=== PATIENT | male | born 1950 | race Caucasian/White ===

== ENCOUNTER 2016-12-31 21:32 | Emergency (ER) | payer MEDICARE, BC ==
[~2016-12-31 21:32] MED LIST: ASPIRIN81 MG PO; IBUPROFEN200 M1 PO; OMEGA 3 FISH1 CAP.EC PO; PERCOCET 5/3251 TAB PO
== END 2016-12-31 22:20 ==
LOC: EDMED 21:32
DX: S80.861A Insect bite (nonvenomous), right lower leg, initial encounter (principal); Z88.0 Allergy status to penicillin; W57.XXXA Bitten or stung by nonvenomous insect and other nonvenomous arthropods, initial encounter